=== PATIENT | male | born 1960 | race Caucasian/White ===

== ENCOUNTER 2018-06-25 13:08 | Emergency (ER) | payer OTHER ==
--- NOTE | 2018-06-25 13:27 | UC ---
Dental HPI - HPI Summary HPI Summary: 58 yo male presents with upper right dental pain for the last 3-4 days, but worse today. He tells me that he has had dental infections in the past, but they usually resolve on their own - sometimes he has needed penicillin. He called his dentist, but they cannot see him until next week and advised him to be placed on antibiotics before that visit in case work needs to be done. He is able to eat and drink, but does have pain. Denies fever or chills. - History of Current Complaint Stated Complaint: DENTAL COMPLAINT Time Seen by Provider: 06/25/18 13:27 Hx Obtained From: Patient Onset/Duration: Gradual Onset Severity: Severe Pain Intensity: 10 Pain Scale Used: 0-10 Numeric - Allergies/Home Medications Allergies/Adverse Reactions: Allergies Allergy/AdvReac Type Severity Reaction Status Date / Time No Known Allergies Allergy Verified 06/25/18 13:23 PMH/Surg Hx/FS Hx/Imm Hx - Additional Past Medical History Additional PMH: None - Surgical History Surgical History: Yes Surgery Procedure, Year, and Place: LYMPHECTOMY RIGHT ARM - Family History Known Family History: Positive: Cardiac Disease, Hypertension, Diabetes - Social History Occupation: Employed Full-time Lives: With Family Alcohol Use: None Substance Use Type: None Smoking Status (MU): Never Smoked Tobacco Have You Smoked in the Last Year: No Review of Systems All Other Systems Reviewed And Are Negative: Yes Constitutional: Positive: Negative Skin: Positive: Negative Eyes: Positive: Negative ENT: Positive: Dental Pain Respiratory: Positive: Negative Cardiovascular: Positive: Negative Gastrointestinal: Positive: Negative Neurological: Positive: Negative Psychological: Positive: Negative Physical Exam - Summary Physical Exam Summary: GENERAL: NAD. WDWN. No pain distress. SKIN: Mild edema to right cheek. NECK: Supple. Nontender. No lymphadenopathy. CHEST: No accessory muscle use. Breathing comfortably and in no distress. CV: Pulses intact. Cap refill <2seconds NEURO: Alert. PSYCH: Age appropriate behavior. Triage Information Reviewed: Yes Vital Signs: Vital Signs: Temp Pulse Resp BP Pulse Ox 97.6 F 75 18 167/110 98 06/25/18 13:24 06/25/18 13:24 06/25/18 13:24 06/25/18 13:24 06/25/18 13:24 Vital Signs Reviewed: Yes Dental: Positive: Percussion Tenderness @ - Tooth #3, Abscess @ - Tooth #3, Cellulitis @ - Tooth #3. Negative: Gross Decay/Caries @, Dental Fracture @, Cervical Lymphadenopathy, Bleeding Dental Complaint Course/Dx - Course Course Of Treatment: Tooth #[address] him on amoxicillin and have him f/u with his dentist as scheduled for next week. - Differential Dx/Diagnosis Provider Diagnoses: Tooth #3 abscess Discharge - Sign-Out/Discharge Documenting (check all that apply): Patient Departure All imaging exams completed and their final reports reviewed: No Studies - Discharge Plan Condition: Stable Disposition: HOME Prescriptions: Amoxicillin PO (*) [Amoxicillin 500 MG CAP*] 500 mg PO Q12H #14 cap Patient Education Materials: Dental Abscess (ED) Referrals: No Primary Care Phys,NOPCP [Primary Care Provider] - Additional Instructions: If you develop a fever, shortness of breath, chest pain, new or worsening symptoms - please call your PCP or go to the ED. Your blood pressure was high at todays visit. Please see your primary provider within 4 weeks for recheck and re-evaluation. Please follow up with your dentist next week as scheduled - Billing Disposition and Condition Condition: STABLE Disposition: Home - Attestation Statements Provider Attestation: I was available for consult. This patient was seen by the [facility]. The patient was not presented to, seen by, or examined by me. -Lela
[2018-06-25 13:33] VITALS: BP 167/110
== END 2018-06-25 13:55 | disposition home or self-care (01) ==
LOC: UCCORT 13:08
DX: K04.7 Periapical abscess without sinus (principal)
CPT/HCPCS: 99212; G0463

== ENCOUNTER 2018-10-12 16:52 | Emergency (ER) | payer OTHER ==
[2018-10-12] MEDS ORDERED: Penicillin VK TAB* 250 MG PO ONE (18:27)
[2018-10-12] MEDS ORDERED: Ketorolac INJ* 30 MG/ML 1 ML VIAL IM ONE (18:27)
--- NOTE | 2018-10-12 18:41 | UC ---
UC Dental HPI - HPI Summary HPI Summary: 58 yo male with tooth ache x 1-2 days last dose of analgics about 18 hours ago no DM or heart murmur right facial swelling hx HTN but on no meds states he is too busy to see a MD - History of Current Complaint Chief Complaint: UCDentalProblem Stated Complaint: DENTAL CONCERN Time Seen by Provider: 10/12/18 18:20 Hx Obtained From: Patient Onset/Duration: Gradual Onset, Lasting Days Severity: Severe Pain Intensity: 10 Pain Scale Used: 0-10 Numeric Aggravating Factor(s): Heat, Cold, Chewing Alleviating Factor(s): Nothing Related History: Previous Dental Care on Same Tooth, Swelling Dental: 1 - abscess - Allergies/Home Medications Allergies/Adverse Reactions: Allergies Allergy/AdvReac Type Severity Reaction Status Date / Time No Known Allergies Allergy Verified 10/12/18 17:54 PMH/Surg Hx/FS Hx/Imm Hx Previously Healthy: Yes Cardiovascular History: Hypertension - on no meds - Surgical History Surgical History: Yes Surgery Procedure, Year, and Place: LYMPHECTOMY RIGHT ARM - Family History Known Family History: Positive: Cardiac Disease, Hypertension, Diabetes - Social History Alcohol Use: None Substance Use Type: None Smoking Status (MU): Never Smoked Tobacco Have You Smoked in the Last Year: No Review of Systems All Other Systems Reviewed And Are Negative: Yes Constitutional: Positive: Negative Skin: Positive: Negative Eyes: Positive: Negative ENT: Positive: Dental Pain Respiratory: Positive: Negative Cardiovascular: Positive: Negative Gastrointestinal: Positive: Nausea Genitourinary: Positive: Negative Motor: Positive: Negative Neurovascular: Positive: Negative Musculoskeletal: Positive: Negative Neurological: Positive: Negative Psychological: Positive: Negative Physical Exam Triage Information Reviewed: Yes Appearance: Well-Appearing, No Pain Distress, Well-Nourished Vital Signs: Initial Vital Signs Temp 97.7 F 10/12/18 17:52 Pulse 71 10/12/18 17:52 Resp 74 10/12/18 17:52 BP 192/116 10/12/18 17:52 Pulse Ox 97 10/12/18 17:52 Vital Signs Reviewed: Yes Eyes: Positive: Conjunctiva Clear ENT: Positive: Hearing grossly normal, Uvula midline. Negative: Nasal congestion, Nasal drainage, Tonsillar swelling, Tonsillar exudate, Trismus, Muffled voice, Hoarse voice Dental: Positive: Gross Decay/Caries @ Neck exam: Normal Neck: Positive: Supple, Nontender, No Lymphadenopathy Respiratory: Positive: Lungs clear, Normal breath sounds, No respiratory distress, No accessory muscle use Cardiovascular: Positive: RRR, No Murmur Musculoskeletal: Positive: ROM Intact, No Edema Neurological: Positive: Alert Psychological Exam: Normal Skin Exam: Normal Images Head: 1 - swollen Dental Complaint Course/Dx - Differential Dx/Diagnosis Provider Diagnosis: Dental abscess Discharge - Sign-Out/Discharge Documenting (check all that apply): Patient Departure All imaging exams completed and their final reports reviewed: No Studies - Discharge Plan Condition: Stable Disposition: HOME Prescriptions: HYDROcodone/ACETAMIN 5-325 MG* [Bern 5-325 TAB*] 1 tab PO Q4H PRN #15 tab MDD 4 PRN Reason: Pain Naproxen [Naproxen 500 mg tab] 500 mg PO BID PRN #20 tablet.dr PRN Reason: Pain Penicillin VK 500 MG TAB(NF) [Penicillin VK 500 mg Tab] 500 mg PO QID #28 tab Patient Education Materials: Dental Abscess (ED), Hypertension (ED) Additional Instructions: To ER for worsening symptom or if not better in 48 hours You need to find a dentist to address your dental issues You need to find a primary to address you high blood pressure - Billing Disposition and Condition Condition: STABLE Disposition: Home
[2018-10-12 18:55] VITALS: BP 181/115
== END 2018-10-12 18:55 | disposition home or self-care (01) ==
LOC: UCCORT 16:52
DX: K04.7 Periapical abscess without sinus (principal); I10 Essential (primary) hypertension
CPT/HCPCS: 96372; 99212; A9270-GY; G0463; J1885